=== PATIENT | male | born 1965 | race Caucasian/White ===

== ENCOUNTER 2019-04-21 10:24 | Emergency (ER) | payer OTHER, MEDICAID ==
[~2019-04-21] VITALS: Ht 177.8 cm; Wt 100.0 kg
[2019-04-21 11:45] VITALS: BP 155/96
== END 2019-04-21 12:27 | disposition home or self-care (01) ==
LOC: ER 10:24
DX: S60.222A Contusion of left hand, initial encounter (principal); S09.90XA Unspecified injury of head, initial encounter; F12.90 Cannabis use, unspecified, uncomplicated; V43.92XA Unspecified car occupant injured in collision with other type car in traffic accident, initial encounter; Y93.89 Activity, other specified; Y92.488 Other paved roadways as the place of occurrence of the external cause; Y99.8 Other external cause status
CPT/HCPCS: 70450; 73130; 93005; 99284

== ENCOUNTER 2020-05-28 01:10 | Emergency (ER) | payer MEDICAID ==
[~2020-05-28] VITALS: Ht 177.8 cm; Wt 100.0 kg
--- NOTE | 2020-05-28 01:23 | NUR ---
PHOTOPHOBIA, DIZZINESS WITH STANCE
[2020-05-28 02:23] VITALS: BP 128/86
== END 2020-05-28 02:24 | disposition home or self-care (01) ==
LOC: ER 01:10
DX: S09.90XA Unspecified injury of head, initial encounter (principal); S00.211A Abrasion of right eyelid and periocular area, initial encounter; R42 Dizziness and giddiness; H53.149 Visual discomfort, unspecified; W22.8XXA Striking against or struck by other objects, initial encounter; Y93.89 Activity, other specified; Y92.89 Other specified places as the place of occurrence of the external cause; Y99.8 Other external cause status
CPT/HCPCS: 70450; 99284

== ENCOUNTER 2020-12-12 13:46 | Emergency (ER) | payer MEDICAID ==
[~2020-12-12] VITALS: Ht 177.8 cm; Wt 93.2 kg
[2020-12-12 13:54] VITALS: BP 162/89
[2020-12-12] MEDS ORDERED: PENI250T2 PO (14:20)
== END 2020-12-12 14:25 | disposition home or self-care (01) ==
LOC: ER 13:47
DX: K04.7 Periapical abscess without sinus (principal); Z72.89 Other problems related to lifestyle
CPT/HCPCS: 99283

== ENCOUNTER 2021-01-15 01:55 | Emergency (ER) | payer MEDICAID ==
[~2021-01-15] VITALS: Ht 177.8 cm; Wt 95.0 kg
[2021-01-15] MEDS ORDERED: naproxen 500mg tablet PO ONE (03:15)
[2021-01-15] MEDS ORDERED: sulfamethoxazole/trimethoprim DS (800/160mg) tablet PO ONE (03:15)
[2021-01-15] MEDS ORDERED: amox tr/potassium clavulanate 875/125mg TAB PO ONE (03:20)
[2021-01-15] MEDS ORDERED: AMOX-422 PO (03:20)
[2021-01-15] MEDS ORDERED: NAPR-56 PO (03:20)
[2021-01-15 03:27] VITALS: BP 148/90
== END 2021-01-15 03:29 | disposition home or self-care (01) ==
LOC: ER 01:56
DX: K02.9 Dental caries, unspecified (principal); L03.211 Cellulitis of face; F17.200 Nicotine dependence, unspecified, uncomplicated; Z72.89 Other problems related to lifestyle; Z79.899 Other long term (current) drug therapy
CPT/HCPCS: 99283

== ENCOUNTER 2022-03-13 07:20 | Emergency (ER) | payer MEDICAID ==
[~2022-03-13] VITALS: Ht 177.8 cm; Wt 93.2 kg
[2022-03-13 07:26] VITALS: BP 147/81
[2022-03-13] MEDS ORDERED: NO HOME MEDS (07:36)
[2022-03-13] MEDS ORDERED: amox tr/potassium clavulanate 875/125mg TAB PO ONE (08:15)
[2022-03-13] MEDS ORDERED: AMOX-117 PO (08:15)
[2022-03-13] MEDS ORDERED: naproxen 500mg tablet PO ONE (08:15)
[2022-03-13] MEDS ORDERED: NAPR-56 PO (08:15)
[2022-03-13] MEDS ORDERED: dexamethasone 4mg tablet PO ONE (08:15)
--- NOTE | 2022-03-13 08:42 | NUR ---
Discharged patient without giving meds; called patient using two phone numbers on file; no answer. Patient medications are first dose of antibiotic and pain prescriptions sent to [facility] pharmacy.
== END 2022-03-13 08:46 | disposition home or self-care (01) ==
LOC: ER 07:21
DX: K04.7 Periapical abscess without sinus (principal); K02.9 Dental caries, unspecified; L03.211 Cellulitis of face; F17.200 Nicotine dependence, unspecified, uncomplicated; Z72.89 Other problems related to lifestyle; Z79.2 Long term (current) use of antibiotics; Z79.899 Other long term (current) drug therapy
CPT/HCPCS: 99283

== ENCOUNTER 2024-11-09 06:55 | Emergency (ER) | payer MEDICAID ==
[~2024-11-09] VITALS: Ht 177.8 cm; Wt 93.2 kg
[~2024-11-09 06:55] MED LIST: NO HOME MEDS
[2024-11-09 07:03] VITALS: BP 142/80; PULSE 94; RESP 16; TEMP 99.1; O2SAT 98
== END 2024-11-09 07:30 | disposition home or self-care (01) ==
LOC: ER 06:56
DX: S01.85XA Open bite of other part of head, initial encounter (principal); Z72.9 Problem related to lifestyle, unspecified; W57.XXXA Bitten or stung by nonvenomous insect and other nonvenomous arthropods, initial encounter; Y93.89 Activity, other specified; Y92.89 Other specified places as the place of occurrence of the external cause; Y99.8 Other external cause status
CPT/HCPCS: 99281